=== PATIENT | male | born 1980 | race American Indian/Alaskan Native ===

== ENCOUNTER 2017-12-10 09:39 | Emergency (ER) | payer MEDICAID ==
[2017-12-10 09:44] VITALS: TEMP 99
--- NOTE | 2017-12-10 11:17 | RAD ---
PROCEDURE: Radiographs of the right tibia and fibula. HISTORY: r/o frx COMPARISON: A same-day right ankle x-ray study is also noted.. TECHNIQUE: Frontal and lateral views obtained. FINDINGS: BONES: A spiral fracture (1 part only visualized on this exam) affecting the distal fibular diaphyseal metaphyseal junction is noted. No tibial fracture seen. Well corticated ossification tear tibial tuberosity level compatible with fused apophysis here versus old displaced osseous avulsion of the same. No significant fragmentation here seen. JOINT SPACES: Unremarkable. OTHER FINDINGS: None. IMPRESSION: A spiral fracture (1 part only visualized on this exam) affecting the distal fibular diaphyseal metaphyseal junction is noted. No tibial fracture seen. Please note the same-day right ankle report for additional spiral fracture findings
--- NOTE | 2017-12-10 11:21 | RAD ---
PROCEDURE: Right Ankle Radiographs. HISTORY: tripped on stairs COMPARISON: None FINDINGS: BONES: Two nondisplaced distal fibular diaphyseal metaphyseal junctional spiral fracture lines resulting in a butterfly like fragment that is noted. Ref a punctate 1 to 2 mm calcification borders the inferior posterior malleolus -its chronicity is unknown tiny chip or tiny os avulsion here possible. No more extensive tibial fracture lines noted. JOINTS: Trace talonavicular and trace navicular cuneiform dorsal arthropathic changes suggested osteoarthritis. Ankle mortise maintained. Talar dome intact SOFT TISSUES: Tissue swell OTHER FINDINGS: None. IMPRESSION: Nondisplaced paralleling spiral type fracture distal fibular diaphyseal metaphysis. All tiny chip osseous avulsion bordering the posterior inferior tibial plafond -its chronicity under Soft tissue swelling
--- NOTE | 2017-12-10 11:59 | C.PDOC ---
History Of Present Illness 37 y/o obese male presents to the ER complaining of pain and swelling to the right ankle which began after he fell down on flight of stairs last night. Patient states that landed on his right ankle and his right ankle crumpled beneath him. Patient states that he can walk on the ankle but the pain increases with walking. He rates the pain 10/10. Denies having weakness and numbness. Time Seen by Provider: 12/10/17 09:58 Chief Complaint (Nursing): Lower Extremity Problem/Injury History Per: Patient History/Exam Limitations: no limitations Onset/Duration Of Symptoms: Days Current Symptoms Are (Timing): Still Present Severity: Moderate Past Medical History Reviewed: Historical Data, Nursing Documentation, Vital Signs Vital Signs: Last Vital Signs Temp 99 F 12/10/17 12:14 Pulse 87 12/10/17 12:14 Resp 18 12/10/17 12:14 BP 114/71 12/10/17 12:14 Pulse Ox 95 12/10/17 16:30 - Medical History PMH: Asthma, Diabetes, HTN Other Surgeries: Hx of surgeries - [facility] TETANUS TOXOID ADMINIST (08/11/14) Family History: States: No Known Family Hx - Social History Hx Tobacco Use: Yes Hx Alcohol Use: Yes Hx Substance Use: No - Immunization History Hx Tetanus Toxoid Vaccination: Yes Hx Influenza Vaccination: No Hx Pneumococcal Vaccination: No Review Of Systems Except As Marked, All Systems Reviewed And Found Negative. Constitutional: Negative for: Fever, Chills Musculoskeletal: Positive for: Other (right ankle pain) Neurological: Negative for: Weakness, Numbness Physical Exam - Physical Exam Appears: Non-toxic, No Acute Distress Skin: Normal Color, Warm, Dry Head: Atraumatic, Normacephalic Eye(s): bilateral: Normal Inspection Nose: Normal Oral Mucosa: Moist Neck: Supple Chest: Symmetrical Extremity: Normal ROM, Other (swelling and tenderness to right lateral malleolus with crepitus) Neurological/Psych: Oriented x3, Normal Speech ED Course And Treatment O2 Sat by Pulse Oximetry: 95 (RA) Pulse Ox Interpretation: Normal - Other Rad X- Ray- Right Tibia/ Fibula X-Ray: Viewed By Me, Read By Radiologist Interpretation: PROCEDURE: Radiographs of the right tibia and fibula. HISTORY : r/o frx. COMPARISON: A same-day right ankle x-ray study is also noted.. TECHNIQUE: Frontal and lateral views obtained. FINDINGS: BONES: A spiral fracture (1 part only visualized on this exam) affecting the distal fibular diaphyseal metaphyseal junction is noted. No tibial fracture seen. Well corticated ossification tear tibial tuberosity level compatible with fused apophysis here versus old displaced osseous avulsion of the same. No significant fragmentation here seen. JOINT SPACES: Unremarkable. OTHER FINDINGS: None. IMPRESSION: A spiral fracture (1 part only visualized on this exam) affecting the distal fibular diaphyseal metaphyseal junction is noted. No tibial fracture seen. Please note the same-day right ankle report for additional spiral fracture findings X- Ray- Right Ankle X-Ray: Viewed By Me, Read By Radiologist Interpretation: PROCEDURE: Right Ankle Radiographs. HISTORY: tripped on stairs. COMPARISON: None. FINDINGS: BONES: Two nondisplaced distal fibular diaphyseal metaphyseal junctional spiral fracture lines resulting in a butterfly like fragment that is noted. Ref a punctate 1 to 2 mm calcification borders the inferior posterior malleolus -its chronicity is unknown tiny chip or tiny os avulsion here possible. No more extensive tibial fracture lines noted. JOINTS: Trace talonavicular and trace navicular cuneiform dorsal arthropathic changes suggested osteoarthritis. Ankle mortise maintained. Talar dome intact. SOFT TISSUES: Tissue swell. OTHER FINDINGS: None. IMPRESSION: Nondisplaced paralleling spiral type fracture distal fibular diaphyseal metaphysis. All tiny chip osseous avulsion bordering the posterior inferior tibial plafond -its chronicity under. Soft tissue swelling Medical Decision Making Medical Decision Making: Plan: --Tylenol PO -- X- Ray - Right Tibia/ Fibula --X- Ray - Right Ankle -- Physical Therapy Updates: X- Ray - Right Tibia/ Fibula shows distal fibular fracture.Case discussed with orthopedist Dr. Willie Hutton. Splint has been placed by chief technical officer and checked by me. Patient has been provided crutch training. Patient has been discharged and instructed to follow up with orthopedist. Disposition Counseled Patient/Family Regarding: Studies Performed, Diagnosis, Need For Followup, Rx Given - Disposition Referrals: Vicki Whitney MD [Staff Provider] - [facility] [Outside] Disposition: HOME/ ROUTINE Disposition Time: 11:57 Condition: STABLE Prescriptions: Ibuprofen [Motrin] 600 mg PO TID #15 tab Instructions: Fibula Fracture (DC) Forms: [facility] (Korean), Work Excuse - POA Present On Arrival: None - Clinical Impression Clinical Impression: Fracture, fibula closed, shaft - Scribe Statement The provider has reviewed the documentation as recorded by the Scribe Wilber Valadez Provider Attestation: All medical record entries made by the Scribe were at my direction and personally dictated by me. I have reviewed the chart and agree that the record accurately reflects my personal performance of the history, physical exam, medical decision making, and the department course for this patient. I have also personally directed, reviewed, and agree with the discharge instructions and disposition.
[2017-12-10 12:15] VITALS: BP 114/71; PULSE 87; RESP 18
[2017-12-10 16:20] VITALS: O2SAT 95
== END 2017-12-10 12:15 | disposition home or self-care (01) ==
LOC: C.ER 09:39
DX: S82.441A Displaced spiral fracture of shaft of right fibula, initial encounter for closed fracture (principal); W10.9XXA Fall (on) (from) unspecified stairs and steps, initial encounter; E11.9 Type 2 diabetes mellitus without complications; I10 Essential (primary) hypertension; Z72.0 Tobacco use